=== PATIENT | female | born 1970 | race Caucasian/White ===

== ENCOUNTER 2018-11-22 22:16 | Emergency (ER) | payer BC, OTHER ==
[2018-11-22 23:02] VITALS: BMI 24.4
--- NOTE | 2018-11-22 23:39 | PDOC ---
History of Present Illness - History of Present Illness Initial Comments: Patient is a 48 year old [place]-speaking female with PMHx of Cholelithiasis, Cholecystitis, who presents today with diffuse headache since 4 am. Patient states that her headache is worse posteriorly with associated b/l neck pain. Patient states she has had headaches in the past but not to this degree. She states that she usually takes Tyelonol and Motrin for her headaches. She states that she took 4 Tylenol today without relief. She also notes that 2 weeks ago she had tooth pain and finished a course of antibiotics for an infection. History is limited from patient as she is [place]-speaking, helped with translation. She denies any nausea, vomiting, chest pain, abdominal pain. She denies any blurred vision or changes in vision. Allergies:NKDA Surgical Hx: Cholecystectomy, Tonsillectomy <Ivory Kidd - Last Filed: 11/22/18 23:52> <Renee Espinosa - Last Filed: 11/23/18 01:50> - General Chief Complaint: Headache Stated Complaint: HEADACHE Time Seen by Provider: 11/22/18 23:34 Past History <Ivory Kidd - Last Filed: 11/22/18 23:52> - Past Medical History Anemia: No Asthma: No Cancer: No Cardiac Disorders: No CVA: No COPD: No CHF: No Dementia: No Diabetes: No GI Disorders: No Disorders: No HTN: No Hypercholesterolemia: No Liver Disease: No Seizures: No Thyroid Disease: Yes (hypo) - Suicide/Smoking/Psychosocial Hx Smoking History: Never smoked Have you smoked in the past 12 months: No Information on smoking cessation initiated: No Hx Alcohol Use: No Drug/Substance Use Hx: No Substance Use Type: None Hx Substance Use Treatment: No <Renee Espinosa - Last Filed: 11/23/18 01:50> - Past Medical History Allergies/Adverse Reactions: Allergies Allergy/AdvReac Type Severity Reaction Status Date / Time No Known Drug Allergies Allergy Verified 11/22/18 23:02 Home Medications: Ambulatory Orders Cyanocobalamin [Vitamin B12 -] 1,000 mcg PO DAILY 09/19/15 Levothyroxine [Synthroid -] 25 mcg PO DAILY 09/19/15 Cholecalciferol (Vitamin D3) [Vitamin D3] 1,000 unit PO WEEKLY 01/12/16 Review of Systems - Review of Systems Comments:: GENERAL/CONSTITUTIONAL: No fever or chills. No weakness. HEAD, EYES, EARS, NOSE AND THROAT: +tooth pain. No change in vision. No ear pain or discharge. No sore throat. CARDIOVASCULAR: No chest pain or shortness of breath. RESPIRATORY: No cough, wheezing, or hemoptysis. GASTROINTESTINAL: No nausea, vomiting, diarrhea or constipation. GENITOURINARY: No dysuria, frequency, or change in urination. MUSCULOSKELETAL: No joint or muscle swelling or pain. +neck pain, no back pain. SKIN: No rash NEUROLOGIC: +posterior headache, no vertigo, loss of consciousness, or change in strength/sensation. ENDOCRINE: No increased thirst. No abnormal weight change. HEMATOLOGIC/LYMPHATIC: No anemia, easy bleeding, or history of blood clots. ALLERGIC/IMMUNOLOGIC: No hives or skin allergy. 11/23/18 00:01 <Ivory Kidd - Last Filed: 11/22/18 23:52> *Physical Exam - Vital Signs Last Vital Signs Temp Pulse Resp BP Pulse Ox 98.3 F 127 H 18 116/75 98 11/22/18 22:58 11/22/18 22:58 11/22/18 22:58 11/22/18 22:58 11/22/18 22:58 - Physical Exam Comments: GENERAL: Awake, alert, and fully oriented, in no acute distress HEAD: No signs of trauma EYES: PERRLA, EOMI, sclera anicteric, conjunctiva clear ENT: Auricles normal inspection, hearing grossly normal, nares patent, oropharynx clear without exudates. Moist mucosa NECK: Normal ROM, supple, no lymphadenopathy, JVD, or masses LUNGS: Breath sounds equal, clear to auscultation bilaterally. No wheezes, and no crackles HEART: Regular rate and rhythm, normal S1 and S2, no murmurs, rubs or gallops ABDOMEN: Soft, nontender, normoactive bowel sounds. No guarding, no rebound. No masses EXTREMITIES: Normal range of motion, no edema. No clubbing or cyanosis. No cords, erythema, or tenderness NEUROLOGICAL: Cranial nerves II through XII grossly intact. Normal speech, normal gait SKIN: Warm, Dry, normal turgor, no rashes or lesions noted. <Ivory Kidd - Last Filed: 11/22/18 23:52> - Vital Signs Last Vital Signs Temp Pulse Resp BP Pulse Ox 98.3 F 127 H 18 116/75 98 11/22/18 22:58 11/22/18 22:58 11/22/18 22:58 11/22/18 22:58 11/22/18 22:58 <Renee Espinosa - Last Filed: 11/23/18 01:50> Moderate Sedation - Procedure Monitoring Vital Signs: Procedure Monitoring Vital Signs Temperature 98.3 F 11/22/18 22:58 Pulse Rate 127 H 11/22/18 22:58 Respiratory Rate 18 11/22/18 22:58 Blood Pressure 116/75 11/22/18 22:58 O2 Sat by Pulse Oximetry (%) 98 11/22/18 22:58 <Ivory Kidd - Last Filed: 11/22/18 23:52> - Procedure Monitoring Vital Signs: Procedure Monitoring Vital Signs Temperature 98.3 F 11/22/18 22:58 Pulse Rate 127 H 11/22/18 22:58 Respiratory Rate 18 11/22/18 22:58 Blood Pressure 116/75 11/22/18 22:58 O2 Sat by Pulse Oximetry (%) 98 11/22/18 22:58 <Renee Espinosa - Last Filed: 11/23/18 01:50> ED Treatment Course - LABORATORY CBC & Chemistry Diagram: 11/23/18 00:10 11/23/18 00:10 - RADIOLOGY Radiology Studies Ordered: Category Date Time Status HEAD CT WITHOUT CONTRAST [CT] Stat CT Scan 11/22/18 23:10 Completed <Renee Espinosa - Last Filed: 11/23/18 01:50> Medical Decision Making - Medical Decision Making 11/23/18 00:42 a/p: 48yo female with mcadams since this AM -has chronic neck pain, no meningeal signs -diffuse mcadams -no blurred vision, no vision changes -no weakness or paresthesias -took tylenol at home without relief -appears uncomfortable -no focal neuro deficits -will send labs, head ct -will monitor and reassess 11/23/18 01:47 re-assess pt feeling much better no longer has a mcadams states she wants to go home discussed labs and imaging with the patient in detail stable for dc to home <Renee Espinosa - Last Filed: 11/23/18 01:50> *DC/Admit/Observation/Transfer - Attestations Scribe Attestion: 11/23/18 00:03 Documentation prepared by Ivory Kidd, acting as emergency medical dispatcher for Renee Espinosa DO. <Ivory Kidd - Last Filed: 11/22/18 23:52> - Discharge Dispostion Decision to Admit order: No - Attestations Physician Attestion: 11/23/18 01:50 I, Dr. Renee Espinosa DO, attest that this document has been prepared under my direction and personally reviewed by me in its entirety. I further attest, that it accurately reflects all work, treatment, procedures and medical decision -making performed by me. <Renee Espinosa - Last Filed: 11/23/18 01:50> Diagnosis at time of Disposition: Headache - Discharge Dispostion Disposition: HOME Condition at time of disposition: Stable - Referrals Referrals: Mendoza Sanchez MD [Primary Care Provider] - Jason Deleon MD [Staff Physician] - - Patient Instructions Printed Discharge Instructions: DI for Headache Additional Instructions: Please take tylenol or motrin as needed for pain. Please follow up with the neurologist and your PMD in the next 2-3 days. Please return to the ED with any further concerns or complaints.
[2018-11-22] MEDS ORDERED: SODIUM CHLORIDE 0.9% 1000 ML INFUS.BAG IV ONE (23:52)
[2018-11-22] MEDS ORDERED: METOCLOPRAMIDE HCL INJECTION 10 MG/2 ML VIAL IVPUSH ONE (23:52)
[2018-11-23] MEDS ORDERED: METOCLOPRAMIDE HCL INJECTION 10 MG/2 ML VIAL ONE (00:11)
[2018-11-23 00:29] LABS: BASO % 0.7 % (0-2.0); EOS % 0.2 % (0-4.5); HEMATOCRIT 38.6 % (32.4-45.2); HEMOGLOBIN 13.2 GM/dL (10.7-15.3); LYMPH % 15.6 % (8-40); MCH 29.8 pg (25.7-33.7); MCHC 34.1 g/dl (32.0-36.0); MEAN CELL VOLUME 87.3 fl (80-96); MEAN PLT VOLUME 8.5 fl (7.5-11.1); MONO % 5.2 % (3.8-10.2); NEUT % 78.3 % (42.8-82.8); PLATELET COUNT 283 K/MM3 (134-434); RBC 4.42 M/mm3 (3.60-5.2); WHITE BLOOD COUNT 13.9 K/mm3 (4.0-10.0)
[2018-11-23 00:31] LABS: URINE APPEARANCE CLEAR; URINE BILIRUBIN NEGATIVE (<2.0 mg/dL); URINE COLOR STRAW; URINE GLUCOSE (UA) NEGATIVE (NEGATIVE); URINE KETONE NEGATIVE (NEGATIVE); URINE LEUK ESTERASE 1+ (NEGATIVE); URINE NITRITE NEGATIVE (NEGATIVE); URINE PROTEIN NEGATIVE (NEGATIVE); URINE UROBILINOGEN NEGATIVE mg/dL (0.2-1.0)
[2018-11-23 00:33] LABS: HCG,QUALITATIVE URINE Negative
[2018-11-23 00:45] LABS: EPI CELLS MODERATE /HPF (FEW); URINE MUCUS RARE
[2018-11-23 00:48] LABS: INR 1.03 (0.83-1.09); PROTHROMBIN TIME (PATIENT) 12.2 SEC (9.7-13.0)
[2018-11-23 00:51] LABS: ACTIVATED PTT 34.7 SECONDS (25.2-36.5)
[2018-11-23 01:00] LABS: ALBUMIN 4.1 g/dl (3.4-5.0); ALK PHOS 129 U/L (45-117); ANION GAP 8 MMOL/L (8-16); BILIRUBIN,TOTAL 0.3 mg/dL (0.2-1); BLOOD UREA NITROGEN 14 mg/dL (7-18); CHLORIDE 106 mmol/L (98-107); CO2 27 mmol/L (21-32); CREATININE 0.6 mg/dL (0.55-1.3); GLUCOSE,RANDOM 109 mg/dL (74-106); MAGNESIUM 2.1 mg/dL (1.8-2.4); POTASSIUM 3.7 mmol/L (3.5-5.1); SGOT/AST 17 U/L (15-37); SGPT/ALT 26 U/L (13-61); SODIUM 140 mmol/L (136-145); TOT PROT 7.7 g/dl (6.4-8.2)
[2018-11-23 02:09] VITALS: BP 124/91; PULSE 109; TEMP 98.1
== END 2018-11-23 02:14 | disposition home or self-care (01) ==
LOC: JER 22:16
PROC: 3E033GC Introduction of Other Therapeutic Substance into Peripheral Vein, Percutaneous Approach (ICD-10-PCS; principal; 2018-11-22)
PROC: 3E0337Z Introduction of Electrolytic and Water Balance Substance into Peripheral Vein, Percutaneous Approach (ICD-10-PCS; 2018-11-22)
DX: R51 Headache (principal)
CPT/HCPCS: 36415; 70450-TC; 80053; 81003; 81015; 83735; 84703; 85025; 85610; 85730; 99281-25; J7030

== ENCOUNTER 2022-09-16 16:47 | Emergency (ER) | payer BC, OTHER ==
[2022-09-16 17:15] VITALS: BP 144/95; PULSE 91; RESP 18; TEMP 98.1; BMI 29.0
[2022-09-16] MEDS ORDERED: ACETAMINOPHEN 500 MG TABLET (FP) PO ONE (20:14)
[2022-09-16] MEDS ORDERED: ACETAMINOPHEN 500 MG TABLET (FP) ONE (20:51)
[2022-09-16 21:11] LABS: EOS % 1.9 % (0-4.5); HEMATOCRIT 38.8 % (32.4-45.2); LYMPH % 38.2 % (8-40); MCH 29.8 pg (25.7-33.7); MCHC 33.5 g/dl (32.0-36.0); MEAN CELL VOLUME 88.9 fl (80-96); MEAN PLT VOLUME 7.7 fl (7.5-11.1); MONO % 5.3 % (3.8-10.2); NEUT % 53.6 % (42.8-82.8); PLATELET COUNT 279 10^3/uL (134-434); RBC 4.37 M/mm3 (3.60-5.2); RDW 14.6 % (11.6-15.6); WHITE BLOOD COUNT 9.2 K/mm3 (4.0-10.0)
[2022-09-16 21:33] LABS: ALBUMIN 3.8 g/dl (3.4-5.0); BLOOD UREA NITROGEN 17.6 mg/dL (7-18); CALCIUM 9.2 mg/dL (8.5-10.1)
[2022-09-16 21:37] LABS: CREATININE 0.6 mg/dL (0.55-1.3)
[2022-09-16 21:38] LABS: BILIRUBIN,TOTAL 0.3 mg/dL (0.2-1); TOT PROT 6.8 g/dl (6.4-8.2)
[2022-09-16 22:38] LABS: EPI CELLS 14 /uL (0-25.1); HYALINE CASTS 0 /uL (0-3.1); PH,URINE 5.5 (5.0-8.0); URINE APPEARANCE CLEAR; URINE BACTERIA 41 /uL (0-1359); URINE BILIRUBIN NEGATIVE (NEGATIVE); URINE COLOR YELLOW; URINE GLUCOSE (UA) NEGATIVE (NEGATIVE); URINE KETONE TRACE (NEGATIVE); URINE LEUK ESTERASE 2+ (NEGATIVE); URINE NITRITE NEGATIVE (NEGATIVE); URINE PROTEIN NEGATIVE (NEGATIVE); URINE RBC 76 /uL (0-23.9); URINE UROBILINOGEN 0.2 mg/dL (0.2-1.0); URINE WBC 44 /uL (0-25.8)
== END 2022-09-17 00:26 | disposition home or self-care (01) ==
LOC: JER 16:47
DX: R10.31 Right lower quadrant pain (principal)
CPT/HCPCS: 36415; 74177-TC; 80053; 81003; 83690; 84703; 85025; 87086; 87186; 99285-25; Q9967

== ENCOUNTER 2022-10-02 15:06 | Emergency (ER) | payer BC, OTHER ==
[2022-10-02 15:48] VITALS: PULSE 89; RESP 18; TEMP 98.1; BMI 28.6
[2022-10-02] MEDS ORDERED: ONDANSETRON 4 MG/2 ML VIAL IVPUSH ONE (16:49)
[2022-10-02] MEDS ORDERED: FAMOTIDINE 20 MG/50 ML IVPB 20 MG/50 ML MG IVPB ONE ×2 (16:49→17:18)
[2022-10-02] MEDS ORDERED: SODIUM CHLORIDE 1,000 ML IV STA (16:50)
[2022-10-02] MEDS ORDERED: ONDANSETRON 4 MG/2 ML VIAL ONE (17:17)
[2022-10-02 17:27] LABS: HEMATOCRIT 39.9 % (32.4-45.2); HEMOGLOBIN 13.3 GM/dL (10.7-15.3); MCHC 33.4 g/dl (32.0-36.0); MEAN CELL VOLUME 86.9 fl (80-96); MEAN PLT VOLUME 8.3 fl (7.5-11.1); PLATELET COUNT 304 10^3/uL (134-434); RBC 4.59 M/mm3 (3.60-5.2); RDW 14.3 % (11.6-15.6); WHITE BLOOD COUNT 10.5 K/mm3 (4.0-10.0)
[2022-10-02] MEDS ORDERED: ACETAMINOPHEN 1000 MG/100 ML BAG IVPB ONE (17:44)
[2022-10-02 17:56] LABS: CALCIUM 9.2 mg/dL (8.5-10.1)
[2022-10-02 17:57] LABS: ALBUMIN 3.8 g/dl (3.4-5.0); BLOOD UREA NITROGEN 17.5 mg/dL (7-18); MAGNESIUM 2.2 mg/dL (1.8-2.4)
[2022-10-02 18:00] LABS: CREATININE 0.7 mg/dL (0.55-1.3); PHOSPHOROUS 3.3 mg/dL (2.5-4.9)
[2022-10-02 18:01] LABS: BILIRUBIN,TOTAL 0.4 mg/dL (0.2-1); TOT PROT 7.1 g/dl (6.4-8.2)
[2022-10-02] MEDS ORDERED: ACETAMINOPHEN INJECTION 100 ML IVPB ONE (18:02)
[2022-10-02 18:54] LABS: EPI CELLS 5 /uL (0-25.1); HYALINE CASTS 0 /uL (0-3.1); PH,URINE 7.5 (5.0-8.0); URINE APPEARANCE CLEAR; URINE BACTERIA 18 /uL (0-1359); URINE BILIRUBIN NEGATIVE (NEGATIVE); URINE COLOR YELLOW; URINE GLUCOSE (UA) NEGATIVE (NEGATIVE); URINE KETONE NEGATIVE (NEGATIVE); URINE LEUK ESTERASE NEGATIVE (NEGATIVE); URINE NITRITE NEGATIVE (NEGATIVE); URINE PROTEIN NEGATIVE (NEGATIVE); URINE RBC 53 /uL (0-23.9); URINE WBC 8 /uL (0-25.8)
[2022-10-02] MEDS ORDERED: KETOROLAC TROMETHAMINE 15 MG/ML VIAL IVPUSH ONE (21:15)
[2022-10-02] MEDS ORDERED: KETOROLAC TROMETHAMINE 15 MG/ML VIAL ONE (21:18)
[2022-10-02 21:23] VITALS: BP 123/66
== END 2022-10-02 21:58 | disposition home or self-care (01) ==
LOC: JER 15:06
PROC: 3E033GC Introduction of Other Therapeutic Substance into Peripheral Vein, Percutaneous Approach (ICD-10-PCS; principal; 2022-10-02)
DX: R10.84 Generalized abdominal pain (principal); B34.9 Viral infection, unspecified
CPT/HCPCS: 0241U-QW; 36415; 71045-TC-FY; 74177-TC; 80053; 81003; 83690; 83735; 84100; 84484; 84703; 85027; 87086; 87186; 93005; 93010; 99285-25; Q9967